=== PATIENT | female | born 1980 | race African-American/Black ===

== ENCOUNTER 2022-03-01 12:17 | Emergency (ER) | payer OTHER ==
[~2022-03-01] VITALS: Ht 172.7 cm; Wt 96.2 kg
[2022-03-01 12:17] VITALS: BP_SYST 127
--- NOTE | 2022-03-01 12:17 | NUR ---
BROUGHT IN BY [facility], TRIAGED, PLACED IN HALLWAY BED, REPORT GIVEN TO PRANEETH
--- NOTE | 2022-03-01 13:02 | NUR ---
PT ACTIVELY VOMITTING, YELLOW BROWN FLUID. STATES SHE WAS AT [place] YESTERDAY FOR SAME ISSUE OF NAUSEA/VOMITTING. REPORTS HAVING STAGE 4 CANCER AND TAKING ORAL CHEMOTHERAPY. DENIES ANY ABDOMINAL PAIN, NO DYSURIA, DENIES FEVERS. RESP EVEN ND UNLABORED,ON RA @97%. SKIN W/D/I. IV SL TO RT FA, SAFETY MEASURES IN PLACE. WILL CONT TO MONITOR. Addendum: 03/01/22 at 1328 by [email or web address] NOTE WRITTEN BY PRANEETH DASILVA
[2022-03-01] MEDS ORDERED: NACL 0.9% 1,000 ML IV ONE (13:15)
--- NOTE | 2022-03-01 13:19 | NUR ---
DR TALBOT AT BEDSIDE FOR EXAM
--- NOTE | 2022-03-01 13:28 | NUR ---
PT TO CT SCAN HEAD
[2022-03-01] MEDS ORDERED: LORazepam 2 MG/ML VIAL ONE (13:35)
--- NOTE | 2022-03-01 13:42 | NUR ---
PT BACK FROM CT SCAN, AUTOMATIC BANDSAW TENDER STATES PT HAD A MOMENT OF WHEN HER EYES MOVED LEFT TO RIGHT RAPIDLY LASTING SEVERAL SECONDS. DR TALBOT INFORMED, ATIVAN GIVEN ORDERED. PT POST-ICTAL, BUT ANSWERS TO NAME. NO INCONTINCE NOTED. SEIZURE PRECAUTIONS IN PLACE. NO HISTORY OF SZS.
--- NOTE | 2022-03-01 13:53 | NUR ---
family information for [place] reach to Caden Porter [phone] Addendum: 03/01/22 at 1416 by [email or web address] Mother of pt name and number July [phone]
[2022-03-01] MEDS ORDERED: levETIRAcetam 500 MG IV PREMIX 100 ML IV ONE (14:15)
[2022-03-01] MEDS ORDERED: LORazepam 2 MG/ML VIAL IVP ONE (14:15)
--- NOTE | 2022-03-01 15:10 | NUR ---
DR CRUZ AT BEDSIDE FOR RE-EVALUATION
[2022-03-01 16:17] LABS: BASOPHILS % (AUTO) 0.5 % (0.0-2.0); EOSINOPHILS % (AUTO) 0.1 % (0.0-4.0); HEMATOCRIT 35.6 % (36-48); HEMOGLOBIN 12.2 g/dL (12.0-16.0); LYMPHOCYTES # (AUTO) 0.6 K/uL (1.0-5.5); LYMPHOCYTES % (AUTO) 18.3 % (20.5-51.5); MEAN CORPUSCULAR HEMOGLOBIN 34 pg (27-31); MEAN CORPUSCULAR HGB CONC 34 % (32-36); MEAN CORPUSCULAR VOLUME 100 fL (79.0-98.0); MONOCYTES # (AUTO) 0.4 K/uL (0.0-1.0); MONOCYTES % (AUTO) 10.8 % (1.7-9.3); NEUTROPHILS # (AUTO) 2.4 K/uL (1.8-7.7); NEUTROPHILS % (AUTO) 70.3 % (40.0-70.0); PLATELET COUNT (AUTO) 202 K/uL (130-430); RED BLOOD CELL COUNT(AUTO) 3.55 MIL/uL (4.2-6.2); RED CELL DISTRIBUTION WIDTH 20.1 % (9.0-15.0); WHITE BLOOD COUNT (AUTO) 3.4 K/uL (4.8-10.8)
[2022-03-01 16:33] LABS: ANION GAP 9 (5-15); CALCIUM 8.9 mg/dL (8.4-11.0); CHLORIDE 108 mmol/L (98-107); CREATININE 0.84 mg/dL (0.55-1.30); GLUCOSE 108 mg/dL (70-99); UREA NITROGEN, BLOOD 13 mg/dL (8-21)
[2022-03-01 16:41] LABS: INR 1.1 (0.8-1.2); PROTHROMBIN TIME 10.9 SECS (9.5-12.5)
[2022-03-01 16:47] LABS: GFR AFRICAN AMERICAN 97 mL/min (>90)
[2022-03-01 16:50] LABS: ALANINE AMINOTRANSFERASE 16 U/L (12-78); ALBUMIN 3.6 g/dL (3.4-4.8); ASPARTATE AMINOTRANSFERASE 26 U/L (10-37); TOTAL BILIRUBIN 0.5 mg/dL (0.0-1.0)
[2022-03-01 16:51] LABS: ACETAMINOPHEN < 1 ug/mL (1-30); ALCOHOL, BLOOD < 3 mg/dL (<10)
--- NOTE | 2022-03-01 17:04 | NUR ---
PT UP TO BATHROOM WITH MOD ASSIST FOR URINE COLLECTION
[2022-03-01 17:21] LABS: BILIRUBIN,URINE NEGATIVE (NEGATIVE); BLOOD, URINE NEGATIVE (NEGATIVE); CLARITY/URINE CLEAR (CLEAR); COLOR,URINE YELLOW (YELLOW); GLUCOSE,URINE NEGATIVE (NEGATIVE); KETONES,URINE TRACE (NEGATIVE); LEUKOCYTE ESTERASE ,URINE 1+ (NEGATIVE); NITRITE, URINE NEGATIVE (NEGATIVE); PH,URINE 7.5 (5.0-8.0); PROTEIN URINE NEGATIVE (NEGATIVE); UROBILINOGEN,URINE 0.2 (0.2-1.0)
[2022-03-01] MEDS ORDERED: MONT10TA22 (17:26)
[2022-03-01] MEDS ORDERED: VENL37.55 PO (17:26)
[2022-03-01] MEDS ORDERED: ESZO1TAB11 PO (17:26)
[2022-03-01] MEDS ORDERED: PALB125C PO (17:26)
[2022-03-01 17:33] LABS: BARBITURATE, URINE NEGATIVE (NEG <=200); BENZODIAZEPINE, URINE POSITIVE (NEG <=150); CANNABINOID, URINE NEGATIVE (NEG <=50); COCAINE, URINE NEGATIVE (NEG <=150); METHAMPHETAMINES SCREEN,URINE NEGATIVE (NEG <=500); OPIATE, URINE NEGATIVE (NEG <=100); PHENCYCLIDINE SCREEN,URINE NEGATIVE (NEG <=25); UR TRICYCLIC ANTIDEPRESSANTS NEGATIVE (NEG <=300); URINE AMPHETAMINE NEGATIVE (NEG <=500); URINE METHADONE NEGATIVE (NEG <=200); URINE OXYCODONE SCREEN NEGATIVE (NEG <=100); URINE PROPOXYPHENE SCREEN NEGATIVE (NEG <=300)
--- NOTE | 2022-03-01 17:39 | NUR ---
DR. CALDERON, [place] [facility], CALLED BACK TO SPEAK TO DR. CRUZ REGARDING PT STATUS
[2022-03-01 17:42] LABS: BACTERIA,URINE RARE /HPF (None Seen); RBC,URINE 0-3 /HPF (0-3); WBC,URINE 0-3 /HPF (0-3)
[2022-03-01 17:43] LABS: MUCUS,URINE 1+ /LPF (None Seen)
[2022-03-01] MEDS ORDERED: levETIRAcetam 1,000 MG in NS 90 ML IV ONE (17:45)
[2022-03-01] MEDS ORDERED: ONDANSETRON HCL 4 MG/2 ML VIAL IVP ONE (18:00)
--- NOTE | 2022-03-01 18:00 | NUR ---
PT HAD EPISODE OF VOMITTING-YELLOW FLUID-MOD AMT, DR CRUZ INFORMED. ORDERS RECEIVED AND MEDICATED ORDERED.
--- NOTE | 2022-03-01 19:40 | NUR ---
Received report from BROWN Moreland; assuming care of patient at this time.
--- NOTE | 2022-03-01 19:45 | NUR ---
Ervin julian in [facility] - 03/02/22 at 0020 by SDEDVT Carlos
--- NOTE | 2022-03-01 19:45 | NUR ---
Patient A/Ox4, VSS, ambulatory, resp even and unlabored. Patient lying in bed with safety precautions in place and connected to monitor. Nad noted at this time.
[2022-03-01] MEDS ORDERED: MORPHINE 4 MG INJ. 4 MG/ML VIAL IVP ONE (20:45)
--- NOTE | 2022-03-01 21:15 | NUR ---
Patient's son at bedside.
--- NOTE | 2022-03-01 22:00 | NUR ---
Patient sleeping comfortably in bed with safety precautions in place.
--- NOTE | 2022-03-02 | NUR ---
Patient to be transferred to [facility]. Is being transferred due to higher level of care. Receiving facility has accepting physician and available space. ER physician has signed transfer form. Patient or responsible libertarian has agreed to transfer and signed form. Patient belongings inventoried and will be sent with patient. Copy of nursing notes, lab reports, EKG, Physicians Orders and X-rays to be sent with patient. Report called to BROWN Harmon at receiving facility. Receiving physician is Dr Chan. [facility]. ETA is [id number].
[2022-03-02 00:45] VITALS: BP_SYST 141
== END 2022-03-02 00:45 | disposition short-term general hospital (02) ==
LOC: SED 12:17
DX: R55 Syncope and collapse (principal); R56.9 Unspecified convulsions; R51.9 Headache, unspecified; R11.2 Nausea with vomiting, unspecified; Z88.1 Allergy status to other antibiotic agents; Z79.899 Other long term (current) drug therapy; Z20.822 Contact with and (suspected) exposure to COVID-19
CPT/HCPCS: 99285; 96365; 96375; 70450; 71045; 96361; 87426; 80307; 80053; 81000; 85025; 85610; 85730; 87040; 84484; 36415; 93005; 76376; 81025; 83605; G0482; J1953; J2060; J2405; J2270; J7030; G0480; G0481